=== PATIENT | male | born 1965 | race Caucasian/White ===

== ENCOUNTER 2017-12-31 05:49 | Day surgery (SDC) | payer OTHER ==
--- NOTE | 2017-12-30 09:34 | HP ---
HISTORY OF PRESENT ILLNESS: The patient is a 62-year-old male with a 2-year history of intermittent right lateral elbow pain without specific injury. He has had persistent symptoms despite rest, restr iction of activities, anti-inflammatory medications, and several cortisone injections. The pain is n ow interfering with day-to-day activities. PAST MEDICAL HISTORY: The patient is otherwise in good health. He has no major medical problems. CURRENT MEDICATIONS: He is not taking any routine medications. ALLERGIES: PENICILLIN. PHYSICAL EXAMINATION: GENERAL: Reveals a healthy male. HEENT: Unremarkable. NECK: Supple. CHEST: Clear. HEART: Regular rate and rhythm. ABDOMEN: Soft, nontender. RECTAL/GENITAL: Deferred. EXTREMITIES: Pertinent findings related to the right elbow. There is no swelling or ecchymosis. Th ere is tenderness over the lateral epicondyle common extensor origin. There is full range of motion. There is pain with extension of the wrist against resistance. Neurovascular exam is intact. Pulse s are 1+. LABORATORY AND X-RAY FINDINGS: Previous x-rays of the elbow are negative. IMPRESSION: Chronic lateral epicondylitis, right elbow. PLAN: Lateral release with partial lateral epicondylectomy, right elbow. The nature of the surgery, length of recovery, and potential complications such as infection, loss of motion, incomplete relief , neurovascular injury, recurrence, and need for additional treatment or repeat surgery have been dis cussed in detail.
[2017-12-30 15:03] VITALS: BMI 36.9
[2017-12-31] MEDS ORDERED: Clindamycin/D5W 900 mg/50 ml Premix Bag ONE (06:47)
[2017-12-31] MEDS ORDERED: Fentanyl 100 MCG/2 ML VIAL ONE ×2 (07:01→09:20)
[2017-12-31] MEDS ORDERED: Bupivacaine HCl 0.5%/Epinephrine 1:200,000/PF 30 ml Vial ONE (07:01)
[2017-12-31] MEDS ORDERED: Bupivacaine PF 0.5% 30 ML VIAL ONE (07:01)
--- NOTE | 2017-12-31 10:15 | OP ---
DATE OF PROCEDURE: 12/31/2017 SURGEON: Vicente Balderas M.D. ANESTHESIA: General. PREOPERATIVE DIAGNOSIS: Chronic lateral epicondylitis, right elbow. POSTOPERATIVE DIAGNOSIS: Chronic lateral epicondylitis, right elbow. PROCEDURE: Lateral release with lateral epicondylectomy, right elbow. NARRATIVE REPORT: After satisfactory anesthesia was induced in supine position, the patient was prep ped and draped in routine manner. Right arm was elevated and exsanguinated with an Esmarch bandage, and the tourniquet inflated to 250 mmHg. He had a curved longitudinal incision made centered over th e lateral epicondyle, carried down to subcutaneous tissues. Bleeding points controlled with Bovie ca utery. Deep fascia was incised in line with the skin incision. The common extensor origin was then detached from the lateral epicondyle, especially in the area of the extensor carpi radialis brevis. There was chronic inflammation and degeneration. A portion of this was excised and the remaining ten don allowed to retract distally. The joint was opened and there was a so-called synovial fringe. I could not tell if this was really pathologic or not, but it was excised. The joint appeared to be no rmal. The lateral epicondyle was excised with an osteotome flush with the shaft of the humerus and t hen smoothed with a rasp. The wound was copiously irrigated. Subcutaneous tissues were infiltrated with 30 mL of 0.5% Marcaine with epinephrine. The common extensor tendon was left in its retracted p osition. The deep fascia was closed with interrupted #1 Vicryl, subcutaneous tissue closed with inte rrupted 2-0 Vicryl, and the skin closed with running subcuticular 3-0 V-Loc and SurgiSeal skin adhesi ve. A sterile bulky compressive dressing was applied and the tourniquet deflated after 27 minutes. The hand promptly pinked up. The patient was immobilized in a long arm plaster splint and arm sling. He was awakened and taken to recovery room in stable condition. There were no apparent intraoperat fredi complications. The estimated blood loss was negligible. The patient will be discharged home in satisfactory condition. He was instructed in ice, elevation, and given written cast care instructions. He was given a prescription for Dilaudid for pain 2 mg, 60 tablets. He will be rechecked in my office in 2 weeks or sooner if there any problems prior to that time.
== END 2017-12-31 10:30 | disposition home or self-care (01) ==
LOC: SDC 05:49
PROVIDERS: ATTEND Orthopaedic Surgery
PROC: 0PBF0ZZ Excision of Right Humeral Shaft, Open Approach (ICD-10-PCS; principal; 2017-12-31)
DX: M77.11 Lateral epicondylitis, right elbow (principal); Z88.0 Allergy status to penicillin; Z79.899 Other long term (current) drug therapy
CPT/HCPCS: 93005; 93010; 96374; J0131; J0670; J3010; J3490; S0020

== ENCOUNTER 2018-05-21 13:52 | Outpatient (CLI) | payer OTHER ==
--- NOTE | 2018-05-21 16:36 | MRI ---
MRI BRAIN NONCONTRAST: Indication: Vascular headache, not otherwise classified. Comparison: None. FINDINGS: There is no evidence of an acute territorial infarction, mass effect, midline shift or ventriculomega ly. No intracranial hemorrhage susceptibility. No significant signal abnormality in the parenchyma. V isualized skull based flow voids are patent. There is opacification of a posterior left ethmoid air c ell. IMPRESSION: No acute intracranial abnormalities. POS: [facility]
== END 2018-05-21 13:53 | disposition home or self-care (01) ==
LOC: MRI 13:52
PROVIDERS: ATTEND Psychologist Addiction (Substance Use Disorder)
DX: G44.1 Vascular headache, not elsewhere classified (principal)
CPT/HCPCS: 70551